=== PATIENT | male | born 1975 | race African-American/Black ===

== ENCOUNTER 2016-03-14 16:52 | Inpatient (IN) | payer OTHER ==
[2016-03-14] VITALS (14 sets, daily range): BP systolic 134–168; BP diastolic 90–101
[~2016-03-14] VITALS: Ht 172.7 cm; Wt 78.5 kg
--- NOTE | ~2016-03-14 | H ---
[facility] [place] [address] HISTORY AND PHYSICAL Name: BENI MERCEDES Room #: 247-P ADM IN M.R.#: [id number] Admission: 03/14/16 Attend Phys: Padilla Harris MD Discharge: Date of : 73 Report #: [id number] THIS REPORT FOR: //name// CC: FAM unknown Padilla Harris ATTENDING PHYSICIAN: Dr. Padilla Harris. PRIMARY CARE PHYSICIAN: Dr. Peterson. CHIEF COMPLAINT: Seizures. 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 He had another stroke in 2011 affecting the same side. He developed seizures after the first stroke. He is on multiple seizure medications. He is followed by Neurology. He has had multiple admissions for breakthrough seizures or for seizures related to medication noncompliance. He lives at home with his family. Apparently, EMS was called because he was having multiple seizures today. He was given 15 mg of Valium by EMS. He was seizing when he came in to the ER, after IV was establish he was given Ativan in the ER, x 2 doses and eventually this seizure activity stopped. His reported that he was taking all his regular seizure medications except he has been out of clonazepam. The patient had a very extended postictal phase and was still mostly unresponsive after seizures in the ER, therefore was opted to admit him for further evaluation. He was protecting his airway and he was given a dose of IV Keppra in the ER. He is now in ICU. He is more arousable but still sleepy. He is able to answer most questions and follow commands. He was able to tell me that he was in the hospital, he was not sure which one. He is able to tell me that it was 2016, but he said it was April. He says he was taking all of his medications. He denies any recent illnesses such as cough, congestion, fevers, chills, nausea or vomiting or diarrhea. PAST MEDICAL HISTORY: Multiple cerebrovascular accidents with residual left-sided weakness, memory loss, and post-stroke epilepsy. PAST SURGICAL HISTORY: Appendectomy. ALLERGIES: LACOSAMIDE CAUSES PSYCHOSIS AND HALLUCINATION AND NASAL VERSED, UNKNOWN REACTION. HOME MEDICATIONS: Phenytoin 300 mg q.h.s. and 200 mg daily, Briviact 50 mg b.i.d., Keppra 1000 mg b.i.d., Prozac 20 mg daily, Ativan 0.5 mg q. 8 hours and p.r.n. SOCIAL HISTORY: The patient who lives at home with his family. He does smoke like six cigarettes per day. Denies any alcohol use. He does admit to smoking [address] [address] HISTORY AND PHYSICAL Name: BENI MERCEDES Room #: 247-P ADM IN [facility]#: [id number] Admission: 03/14/16 Attend Phys: Padilla Harris MD Discharge: Date of : 73 Report #: [id number]. REVIEW OF SYSTEMS: Unobtainable due to confusion. PHYSICAL EXAMINATION: GENERAL: The patient is an arousable but confused male in no acute distress. VITAL SIGNS: Temperatures unknown, heart rate is 97, respirations , blood pressure is 150/99, oxygen 100% on 2 liters. HEENT: PEERLA. The patient was able to track with his eyes, sclerae are nonicteric. Oral mucosa is pink and moist. No tongue lacerations. NECK: Supple, no JVD noted. CARDIOVASCULAR: Normal S1, S2. No murmurs, rubs or gallops. RESPIRATORY: Breath sounds are clear bilaterally. No wheezing or rhonchi. Breathing is nonlabored. ABDOMEN: Soft, nontender, nondistended with positive bowel sounds. VASCULAR: No edema noted. Pedal pulses are 2+. NEUROLOGIC: The patient is somewhat sleepy, but aroused easily and was able to follow commands. He was somewhat confused and only oriented to person, and place. He was unable to tell me the current month. He does have some weakness on the left side with muscle strength 4/5 and the left arm and leg. He is moving the right side without difficulty. There is no facial asymmetry. Speech is clear, but somewhat slow in his responses. SKIN: Intact. No rashes or lesions. LABORATORY DATA AND DIAGNOSTICS: , hemoglobin 16.8, platelets 205. Sodium 148, potassium 4.6, BUN 8, creatinine 1.0. Glucose 139. Urine drug screen is positive for benzodiazepines and THC, CK is 61, alcohol level is less than 10. Troponins negative and CT of the head without contrast showed that it was stable. There is extensive right cerebellar hemispheric encephalomalacia and gliosis. There is no evidence of acute intracranial hemorrhage or acute intracranial abnormality. ASSESSMENT AND PLAN: 1. Intact tract seizures, his seizures eventually stopped in the ER after Valium and Ativan. He did have extended postictal phase. He is now more arousable, he was loaded with Keppra in the ER. We will continue with IV Keppra for now and since he is more alert, he should be able to resume his oral medications this morning including Dilantin and Briviact and Neurology is consulted. We will return EEG for morning. Continue with seizure precautions and CT of the head showed no acute changes. Check Dilantin and Keppra levels. 2. History of extensive cerebrovascular accident in the right MCA with residual left-sided weakness. It does not look like he is on any blood thinners. His left side weakness is at baseline. 3. Tobacco abuse and marijuana use. The patient has been advised to quit. 4. Deep venous thrombosis prophylaxis, place sequential compression devices. [facility] [address] [place] [address] HISTORY AND PHYSICAL Name: NAILARADHABENI NILO Room #: [facility] IN [facility]#: [id number] Admission: 03/14/16 Attend Phys: Padilla Harris MD Discharge: Date of : 73 Report #: [id number] We will continue to follow the patient closely throughout the hospitalization and make changes based on clinical status. <ELECTRONICALLY SIGNED> By: NAVYA Montgomery 03/15/16 0646 0512 06 NAVYA Montgomery /nt
--- NOTE | ~2016-03-14 | EEG ---
[facility] [place] [address] ELECTROENCEPHALOGRAM Name: BENI MECREDES Room #: 420-P [facility] IN M.R.#: [id number] Admission: 03/14/16 Attend Phys: Sanchez Manedl Discharge: 03/15/16 Date of : 73 Report #: [id number] THIS REPORT FOR: //name// CC: FAM unknown Sanchez Hammer The patient is a 40-year-old male who was in status epilepticus the day previously. He has a well known history of drug-resistant epilepsy. DESCRIPTION: The awake record consists of attenuation over the right hemisphere. A posterior dominant rhythm is seen over the left hemisphere and is at 8 cycles per second. Over the frontotemporal head regions, 8-shzrs-iqy-second activity is seen intermittently. Stage I sleep was characterized by attenuation of the background record. Photic stimulation was non-activating. No clear epileptiform discharges were noted. IMPRESSION: This is an abnormal adult awake record. The patient has attenuation over the right hemisphere with no well developed posterior dominant rhythm suggesting right hemispheric dysfunction. However, slowing was also seen over the left frontotemporal head regions and may also indicate focal cerebral dysfunction. No clear epileptiform discharges were noted. <ELECTRONICALLY SIGNED> By: Evette Montes De Oca DO 03/16/16 0833 1541 1802 Evette Montes De Oca DO /nt
[~2016-03-14 16:52] MED LIST: A + D42.5 GM; ASPIR 8181 MG PO; ASPIRIN EC325 M1 PO; ASPIRIN PO; ASPIRIN325 PO; ATIVAN0.5 MG; ATIVAN0.5 MG PO; ATIVAN1 MG PO; CEFTIN500 MG PO; CHLORTHALIDONE25 MG PO; DILANTIN 100 M100 MG PO; DILANTIN100 MG PO; DILANTIN30 MG PO; FLAGYL500 MG PO; FOLIC ACID 40400 MC1 PO; FOLIC ACID1 MG PO; KEPPRA 500 MG500 M1 PO; KEPPRA1000 MG PO; KEPPRA750 MG PO; LEVETIRACETAM PO; PHENYTOIN SODI100 M3 PO; PHENYTOIN SODI300 MG PO; PHENYTOIN50 MG PO; PRAVASTATIN SOD20 MG PO; PROTONIX40 M2 PO; TYLENOL325 MG PO; VIMPAT150 MG PO; ZOLOFT 50 MG TA50 M1 PO
[2016-03-14 17:21] LABS: BASOPHILS 0.5 % (0.0-2.0); HEMATOCRIT 49.3 % (42.0-52.0); HEMOGLOBIN 16.8 gm/dL (14.0-18.0); LYMPHOCYTES 17.1 % (24.0-44.0); MCH 31.7 pg (26.0-34.0); MCV 93.3 fL (80.0-100.0); MONOCYTES 5.4 % (1.0-8.0); PLATELET COUNT 205 thou/uL (150-400); RBC 5.29 mil/uL (4.50-6.00); RDW 14.6 % (10.5-14.5); WBC 13.2 thou/uL (4.0-11.0)
[2016-03-14 17:24] LABS: MANUAL DIFF NO
[2016-03-14] MEDS ORDERED: BRIVIACT50 MG PO (17:24)
[2016-03-14] MEDS ORDERED: PROZAC20 MG PO (17:25)
[2016-03-14 17:33] LABS: ANION GAP 7 mmol/L (7-16); BUN 8 mg/dL (7-18); CHLORIDE 110 mmol/L (98-107); CO2 31 mmol/L (21-32); GLUCOSE 139 mg/dL (70-99); POTASSIUM 4.6 mmol/L (3.5-5.1); SODIUM 148 mmol/L (136-145)
[2016-03-14 17:42] LABS: URINE BILIRUBIN NEGATIVE (Negative); URINE BLOOD 2+ (Negative); URINE COLOR YELLOW; URINE GLUCOSE-RANDOM* NEGATIVE (Negative); URINE KETONES NEGATIVE (Negative); URINE LEUKOCYTES-REFLEX NEGATIVE (Negative); URINE PROTEIN (DIPSTICK) 1+ (Negative); URINE SPECIFIC GRAVITY 1.025 (1.003-1.035); URINE UROBILINOGEN 0.2 E.U./dl (0.2-1.0)
[2016-03-14 17:44] LABS: ALBUMIN 3.6 g/dL (3.4-5.0); ALKALINE PHOSPHATASE 198 U/L (46-116); DILANTIN 12.9 ug/mL (10.0-20.0); SGOT 16 U/L (15-37); TOTAL BILIRUBIN 0.3 mg/dL (<0.1-1.0); TOTAL PROTEIN 7.6 g/dL (6.4-8.2); TROPONIN-I < 0.04 ng/mL (<0.04-0.07)
[2016-03-14 17:53] LABS: AMP/METHAMP Negative (Negative); BARBITURATES Negative (Negative); BENZODIAZEPINES POSITIVE (Negative); COCAINE Negative (Negative); METHADONE Negative (Negative); OPIATES Negative (Negative); PCP Negative (Negative); THC POSITIVE (Negative)
[2016-03-14 17:56] LABS: CASTS None Seen /LPF (None Seen); CRYSTALS None Seen /LPF (None Seen); SQUAMOUS None Seen /LPF (0-3)
[2016-03-14 17:57] LABS: URINE RBC 0-2 Rare /HPF (0-2); URINE WBC-REFLEX None Seen /HPF (0-5)
[2016-03-14 23:19] LABS: SGPT 24 U/L (30-65)
[2016-03-15] VITALS (17 sets, daily range): BP systolic 134–148; BP diastolic 78–99
[2016-03-15] MEDS ORDERED: CLONAZEPAM 1 MG1 M1 PO (10:42)
== END 2016-03-15 17:23 | disposition home or self-care (01) | DRG 101 ==
LOC: ER 16:52 → ICU 19:18 → EROBS 19:18 → ICU 20:10 → 4E 03-15 13:59
PROVIDERS: Emergency Medicine
DX: G40.901 Epilepsy, unspecified, not intractable, with status epilepticus (principal); I69.354 Hemiplegia and hemiparesis following cerebral infarction affecting left non-dominant side; F32.9 Major depressive disorder, single episode, unspecified; I99.9 Unspecified disorder of circulatory system; G93.89 Other specified disorders of brain; R41.3 Other amnesia; F12.90 Cannabis use, unspecified, uncomplicated; F41.9 Anxiety disorder, unspecified; F17.210 Nicotine dependence, cigarettes, uncomplicated; Z88.8 Allergy status to other drugs, medicaments and biological substances; Z90.49 Acquired absence of other specified parts of digestive tract; Z88.4 Allergy status to anesthetic agent; Z71.51 Drug abuse counseling and surveillance of drug abuser; Z71.6 Tobacco abuse counseling
CPT/HCPCS: 10078

== ENCOUNTER 2016-07-16 16:16 | Emergency (ER) | payer OTHER ==
[~2016-07-16] VITALS: Ht 160 cm; Wt 79.4 kg
--- NOTE | ~2016-07-16 | EKG ---
[address] [place] [address] ELECTROCARDIOGRAM REPORT Name: BENI MERCEDES Room #: [facility].R.#: [id number] Admission: Attend Phys: Discharge: Date of : 73 Report #: [id number] THIS REPORT FOR: //name// [facility] ED Test Date: 2016-07-16 Test Time: 16:29:38 Pat Name: BENI MERCEDES Department: Room: Gender: Dean Of Student Services: ROMARIO : 1975 Requested By: Jim Michael Order Number: [id number] MD: Measurements Intervals [place] Rate: 79 P: 29 IL: 137 QRS: 36 QRSD: 85 T: 30 QT: 365 QTc: 419 Interpretive Statements Sinus rhythm ST elev, probable normal early repol pattern Compared to ECG 11/12/2015 19:39:10 ST (T wave) deviation now present T-wave abnormality no longer present [email or web address] By: 1629 1629 Epiphany Epiphany, /EPI
[~2016-07-16 16:16] MED LIST changes: +BRIVIACT50 MG PO; +CLONAZEPAM 1 MG1 M1 PO; +PROZAC20 MG PO
[2016-07-16 16:57] LABS: ABSOLUTE NEUTROPHILS 4.9 thou/uL (1.4-8.2); BASOPHILS 0.7 % (0.0-2.0); EOSINOPHILS 1.8 % (0.0-3.0); HEMATOCRIT 47.8 % (42.0-52.0); HEMOGLOBIN 16.5 gm/dL (14.0-18.0); LYMPHOCYTES 26.9 % (24.0-44.0); MCH 31.8 pg (26.0-34.0); MCHC 34.4 g/dL (28.0-37.0); MCV 92.4 fL (80.0-100.0); MONOCYTES 7.9 % (1.0-8.0); PLATELET COUNT 182 thou/uL (150-400); POLYS 62.7 % (36.0-66.0); RBC 5.18 mil/uL (4.50-6.00); WBC 7.9 thou/uL (4.0-11.0)
[2016-07-16 17:02] LABS: MANUAL DIFF NO
[2016-07-16 17:04] LABS: CALCIUM 8.3 mg/dL (8.5-10.1); CREATININE 0.8 mg/dL (0.7-1.3); POTASSIUM 4.4 mmol/L (3.5-5.1)
[2016-07-16 18:02] LABS: URINE BILIRUBIN NEGATIVE (Negative); URINE BLOOD TRACE (Negative); URINE COLOR YELLOW; URINE GLUCOSE-RANDOM* NEGATIVE (Negative); URINE KETONES NEGATIVE (Negative); URINE LEUKOCYTES-REFLEX NEGATIVE (Negative); URINE PROTEIN (DIPSTICK) NEGATIVE (Negative); URINE SPECIFIC GRAVITY 1.015 (1.003-1.035); URINE UROBILINOGEN 0.2 E.U./dl (0.2-1.0)
== END 2016-07-16 20:36 | disposition home or self-care (01) ==
LOC: ER 16:16
PROVIDERS: Emergency Medicine
DX: G40.909 Epilepsy, unspecified, not intractable, without status epilepticus (principal); F17.210 Nicotine dependence, cigarettes, uncomplicated; Z86.73 Personal history of transient ischemic attack (TIA), and cerebral infarction without residual deficits; Z90.89 Acquired absence of other organs; Z88.8 Allergy status to other drugs, medicaments and biological substances

== ENCOUNTER 2016-08-06 15:08 | Emergency (ER) | payer OTHER ==
[~2016-08-06] VITALS: Ht 160 cm; Wt 79.4 kg
[2016-08-06 16:46] LABS: CALCIUM 8.8 mg/dL (8.5-10.1); CREATININE 0.7 mg/dL (0.7-1.3)
[2016-08-06 16:48] LABS: DILANTIN 12.7 ug/mL (10.0-20.0)
[2016-08-06 17:05] LABS: MCH 32.2 pg (26.0-34.0); MCHC 34.5 g/dL (28.0-37.0); MCV 93.4 fL (80.0-100.0); RBC 5.57 mil/uL (4.50-6.00)
[2016-08-06 17:08] LABS: MANUAL DIFF YES
[2016-08-06 17:51] LABS: ABSOLUTE NEUTROPHILS 10.6 thou/uL (1.4-8.2); PLATELET COUNT 159 thou/uL (150-400); TOTAL CELL COUNT 100
== END 2016-08-06 19:00 | disposition home or self-care (01) ==
LOC: ER 15:08
PROVIDERS: Nurse Practitioner
DX: G40.909 Epilepsy, unspecified, not intractable, without status epilepticus (principal); F17.210 Nicotine dependence, cigarettes, uncomplicated; F15.10 Other stimulant abuse, uncomplicated; Z90.49 Acquired absence of other specified parts of digestive tract; Z88.8 Allergy status to other drugs, medicaments and biological substances

== ENCOUNTER 2016-11-10 20:55 | Inpatient (IN) | payer OTHER ==
[~2016-11-10] VITALS: Ht 170.2 cm; Wt 76.7 kg
--- NOTE | ~2016-11-10 | HC ---
[facility] [place] [address] CONSULTATION Name: BENI MERCEDES Room #: 313-P [facility] IN M.R.#: [id number] Admission: 11/10/16 Attend Phys: Sanchez Hammer Discharge: 11/13/16 Date of : 73 Report #: [id number] THIS REPORT FOR: //name// CC: JAYDEN physician/PCP Sanchez Hammer MD Obdulio Garcia Evette Pollard DATE OF SERVICE: 11/11/2016 PULMONARY CRITICAL CARE CONSULTATION REFERRING PROVIDER: Sanchez Hammer MD REASON FOR CONSULTATION: Respiratory failure. CHIEF COMPLAINT: Seizures. HISTORY OF PRESENT ILLNESS: Our group was asked to see this patient in consultation while hospitalized at [facility], currently on mechanical ventilatory support in ICU and unable to give any history, somewhat sedated 41-year-old male with prior history of seizure disorder associated with prior cerebrovascular accident. Apparently, had a grand mal seizure at home and en route, received diazepam en route as well as in the Emergency Department, had noted 2 seizures, was given Keppra and lorazepam. The patient had some hypoxemia and unable to maintain adequate airway protection, subsequently intubated, currently on mechanical ventilatory support. Otherwise, the patient may have had some noncompliance with one of his medications, which is unclear. Currently, he is sedated and on mechanical ventilator. ALLERGIES: INCLUDE MIDAZOLAM AND VIMPAT. PAST MEDICAL HISTORY: 1. History of prior cerebrovascular accident without any significant mobilization issues according to the family. 2. Seizure disorder secondary to above. 3. Some difficulty with memory. OUTPATIENT MEDICATIONS: Include phenytoin, Briviact, Prozac and Klonopin. SOCIAL HISTORY: Unobtainable due to current status. FAMILY HISTORY: Unobtainable due to current status. REVIEW OF SYSTEMS: Unobtainable due to current status. [facility] [address] [place] [address] CONSULTATION Name: BENI MERCEDES NILO Room #: 313-P DIS IN [facility].#: [id number] Admission: 11/10/16 Attend Phys: Sanchez Hammer Discharge: 11/13/16 Date of : 73 Report #: [id number] PHYSICAL EXAMINATION: VITAL SIGNS: Temperature 38.2, pulse 90s, respiratory rate 14, blood pressure 122/93. GENERAL: This is a middle-aged male, sedated on the ventilator. EARS, NOSE AND THROAT: Reveals a 7.[address] No oropharyngeal erythema noted. NECK: Supple, no lymphadenopathy. LUNGS: Clear. No wheezes or crackles. Minimal secretions aspirated from airway. CARDIOVASCULAR: Heart regular. No murmurs appreciated. ABDOMEN: Soft, nontender, no masses, no hepatosplenomegaly. EXTREMITIES: Warm without edema. NEUROLOGIC: The patient was sedated on mechanical ventilator. LABORATORY DATA: White blood cell count 18,000; hemoglobin 16; hematocrit 45; platelet count 148. Sodium 142, potassium 3.8, chloride 106, bicarbonate 26, BUN 7, creatinine 1.0, glucose 92. Initial arterial blood gas revealed a pH of 7.18 and an elevated lactate. This morning, arterial blood gas showed a pH of 7.52, PCO2 of 31, pO2 of 225, bicarbonate 25 with lactate 2.3. Dilantin level was 1.2. Marijuana screen positive. Chest x-ray revealed clear lung field. IMPRESSION: 1. Seizure disorder with subtherapeutic phenytoin level likely related to this, although it could be related to underlying source of potential fever. 2. Fever with leukocytosis may be related to seizure disorder and status epilepticus yesterday, on no antibiotics at present, would continue to observe other signs of infection, await cultures and check urinalysis. 3. Respiratory failure due to the above, minimize sedation and see if the patient can follow up commands and work to wean from mechanical ventilatory support. 4. Additional recommendations to follow. Thank you for requesting our suggestions. Discussed with nursing and respiratory therapy. Total critical care time 35 minutes to this point not including any procedures. <ELECTRONICALLY SIGNED> By: Roe Tilley MD 11/21/16 1304 1125 1957 Roe Tilley MD /nt
[2016-11-10 22:11] LABS: ABSOLUTE NEUTROPHILS 12.4 thou/uL (1.4-8.2); BASOPHILS 0.2 % (0.0-2.0); EOSINOPHILS 0.4 % (0.0-3.0); HEMATOCRIT 47.2 % (42.0-52.0); MCH 33.1 pg (26.0-34.0); MCV 97.2 fL (80.0-100.0); MONOCYTES 9.2 % (1.0-8.0); PLATELET COUNT 140 thou/uL (150-400); POLYS 77.2 % (36.0-66.0); RBC 4.85 mil/uL (4.50-6.00); RDW 14.5 % (10.5-14.5)
[2016-11-10 22:20] LABS: CALCIUM 8.5 mg/dL (8.5-10.1); CREATININE 1.3 mg/dL (0.7-1.3); POTASSIUM 3.8 mmol/L (3.5-5.1)
[2016-11-10 22:25] LABS: ALBUMIN 3.7 g/dL (3.4-5.0); DILANTIN 1.2 ug/mL (10.0-20.0); MAGNESIUM 1.8 mg/dL (1.8-2.4); TOTAL BILIRUBIN 0.2 mg/dL (<0.1-1.0); TOTAL PROTEIN 7.3 g/dL (6.4-8.2)
[2016-11-10 22:37] LABS: ABG SAMPLE TYPE ARTERIAL; BE(vivo) -11.8 mmol/L (-2 to +3); HCO3 16.4 mmol/L (22.0-26.0); LACTATE 7.05 mmol/L (0.5-2.0); O2(CT) 23.6 mL/dL (15.0-23.0); O2Hb 97.6 % (92.0-98.0); PCO2 45.5 mmHg (35.0-45.0); PO2 260.5 mmHg (80.0-100.0); pH 7.176 (7.360-7.450); sO2 99.4 % (92.0-98.0); tCO2 17.8 mmol/L (24.0-30.0)
[2016-11-10 22:38] LABS: ABG COMMENT A/C MODE/POST; STICK SITE R.RADIAL; TIDAL VOLUME 600 ml
[2016-11-10 22:41] LABS: MANUAL DIFF NO
[2016-11-11] VITALS (38 sets, daily range): BP systolic 122–158; BP diastolic 86–112
[2016-11-11 02:09] LABS: ABG COMMENT AC MODE; ABG SAMPLE TYPE ARTERIAL; BE(vivo) 2.8 mmol/L (-2 to +3); HCO3 24.7 mmol/L (22.0-26.0); LACTATE 2.31 mmol/L (0.5-2.0); O2(CT) 23.4 mL/dL (15.0-23.0); O2Hb 98.4 % (92.0-98.0); PCO2 31.1 mmHg (35.0-45.0); PO2 224.9 mmHg (80.0-100.0); STICK SITE R.RADIAL; TIDAL VOLUME 550 ml; pH 7.518 (7.360-7.450); sO2 99.6 % (92.0-98.0); tCO2 25.7 mmol/L (24.0-30.0)
[2016-11-11 04:02] LABS: AMP/METHAMP Negative (Negative); BARBITURATES Negative (Negative); BENZODIAZEPINES Negative (Negative); COCAINE Negative (Negative); METHADONE Negative (Negative); OPIATES Negative (Negative); PCP Negative (Negative); THC POSITIVE (Negative)
[2016-11-11 04:08] LABS: ALBUMIN 3.6 g/dL (3.4-5.0); CALCIUM 8.7 mg/dL (8.5-10.1); POTASSIUM 3.8 mmol/L (3.5-5.1); TOTAL BILIRUBIN 0.4 mg/dL (<0.1-1.0); TOTAL PROTEIN 7.2 g/dL (6.4-8.2)
[2016-11-11 04:18] LABS: ABSOLUTE NEUTROPHILS 14.3 thou/uL (1.4-8.2); BASOPHILS 0.2 % (0.0-2.0); EOSINOPHILS 0.1 % (0.0-3.0); HEMATOCRIT 45.3 % (42.0-52.0); HEMOGLOBIN 15.9 gm/dL (14.0-18.0); LYMPHOCYTES 12.6 % (24.0-44.0); MCH 32.4 pg (26.0-34.0); MCV 92.5 fL (80.0-100.0); MONOCYTES 6.5 % (1.0-8.0); PLATELET COUNT 148 thou/uL (150-400); POLYS 80.6 % (36.0-66.0); RDW 14.6 % (10.5-14.5); WBC 17.7 thou/uL (4.0-11.0)
[2016-11-11 04:29] LABS: MANUAL DIFF NO
[2016-11-11 12:14] LABS: URINE BILIRUBIN NEGATIVE (Negative); URINE BLOOD TRACE (Negative); URINE COLOR YELLOW; URINE GLUCOSE-RANDOM* NEGATIVE (Negative); URINE KETONES NEGATIVE (Negative); URINE PROTEIN (DIPSTICK) NEGATIVE (Negative); URINE UROBILINOGEN 0.2 E.U./dl (0.2-1.0)
[2016-11-11 12:15] LABS: URINE LEUKOCYTES-REFLEX 1+ (Negative)
[2016-11-11 12:26] LABS: CASTS None Seen /LPF (None Seen); CRYSTALS None Seen /LPF (None Seen); SQUAMOUS 0-3 Few /LPF (0-3); URINE RBC 0-2 Rare /HPF (0-2); URINE WBC-REFLEX 6-15 Few /HPF (0-5); WBC CLUMPS Rare (None Seen)
[2016-11-11 13:38] LABS: ABG SAMPLE TYPE ARTERIAL; BE(vivo) 0.6 mmol/L (-2 to +3); HCO3 24.9 mmol/L (22.0-26.0); LACTATE 1.43 mmol/L (0.5-2.0); O2Hb 97.1 % (92.0-98.0); PCO2 39.1 mmHg (35.0-45.0); PO2 117.2 mmHg (80.0-100.0); pH 7.422 (7.360-7.450); sO2 98.3 % (92.0-98.0); tCO2 26.1 mmol/L (24.0-30.0)
[2016-11-11 13:40] LABS: Pressure Support 8 cm H20; STICK SITE R.RADIAL; TIDAL VOLUME 525 ml
[2016-11-12] VITALS (12 sets, daily range): BP systolic 110–143; BP diastolic 72–94
[2016-11-12 04:25] LABS: HEMATOCRIT 46.4 % (42.0-52.0); HEMOGLOBIN 15.9 gm/dL (14.0-18.0); MCH 32.3 pg (26.0-34.0); MCHC 34.3 g/dL (28.0-37.0); MCV 94.2 fL (80.0-100.0); RBC 4.93 mil/uL (4.50-6.00); RDW 14.6 % (10.5-14.5); WBC 13.6 thou/uL (4.0-11.0)
[2016-11-12 04:31] LABS: MANUAL DIFF YES
[2016-11-12 05:36] LABS: ABSOLUTE NEUTROPHILS 9.2 thou/uL (1.4-8.2); ANISOCYTOSIS SLIGHT; LARGE PLATELETS RARE; MACROCYTES SLIGHT; PLATELET COUNT 108 thou/uL (150-400); TOTAL CELL COUNT 100
[2016-11-13 04:00] VITALS: BP 136/94
[2016-11-13 08:00] VITALS: BP 127/90
[2016-11-13] MEDS ORDERED: AMLODIPINE BESYL5 M1 PO (09:09)
[2016-11-13] MEDS ORDERED: DILANTIN100 MG PO (09:20)
[2016-11-13] MEDS ORDERED: PHENYTOIN50 MG PO (09:20)
[2016-11-13 12:06] VITALS: BP 127/90
[2016-11-13 13:00] VITALS: BP 127/90
== END 2016-11-13 14:15 | disposition home or self-care (01) | DRG 100 ==
LOC: ER 20:55 → 3N 22:04 → EROBS 22:04 → ICU 11-11 00:26 → 3N 11-12 15:40 → ENTRNSPT 11-13 14:07 → EDTRNSPTSTS 11-13 14:10 → 3N 11-13 14:15
PROVIDERS: Emergency Medicine; Family Medicine; Hospitalist; Internal Medicine Pulmonary Disease; Nurse Practitioner Family
DX: G40.901 Epilepsy, unspecified, not intractable, with status epilepticus (principal); J96.00 Acute respiratory failure, unspecified whether with hypoxia or hypercapnia; E87.2 Acidosis; I69.951 Hemiplegia and hemiparesis following unspecified cerebrovascular disease affecting right dominant side; F17.210 Nicotine dependence, cigarettes, uncomplicated; D72.829 Elevated white blood cell count, unspecified; F12.90 Cannabis use, unspecified, uncomplicated; I10 Essential (primary) hypertension; F32.9 Major depressive disorder, single episode, unspecified; Z90.49 Acquired absence of other specified parts of digestive tract; Z88.8 Allergy status to other drugs, medicaments and biological substances
CPT/HCPCS: 10078; 10096

== ENCOUNTER 2017-04-25 05:58 | Inpatient (IN) | payer OTHER ==
[2017-04-25] VITALS (20 sets, daily range): BP systolic 105–150; BP diastolic 79–107
[~2017-04-25] VITALS: Ht 175.3 cm; Wt 76.3 kg
--- NOTE | ~2017-04-25 | EEG ---
[facility] [place] [address] ELECTROENCEPHALOGRAM Name: BENI MERCEDES Room #: 213-P [facility] IN M.R.#: [id number] Admission: 04/25/17 Attend Phys: Chuck Dang MD Discharge: 04/30/17 Date of : 73 Report #: [id number] THIS REPORT FOR: //name// CC: Chuck Dang [facility] physician/PCP DATE OF SERVICE: 04/27/2017 This patient is having unusual symptom. EEG is being done to evaluate for any reoccurrence of seizure. On the left side, the patient's background activity is about 8-9 Hz and 30 microvolts. On the right side is suppressed. The patient does become drowsy that is associated with bilateral slowing and vertex sharp waves. Photic stimulation is unremarkable. Throughout the record, no active epileptiform activity was noticed. IMPRESSION: This patient's EEG does not demonstrate any reoccurrence of seizures. Thank you very much for this referral. <ELECTRONICALLY SIGNED> By: Rowdy Markham MD 05/01/17 1146 1757 1800 Rowdy Markham MD /nt
--- NOTE | ~2017-04-25 | EEG ---
[facility] [place] [address] ELECTROENCEPHALOGRAM Name: BENI MERCEDES Room #: 213-P [facility] IN M.R.#: [id number] Admission: 04/25/17 Attend Phys: Chuck Dang MD Discharge: 04/30/17 Date of : 73 Report #: [id number] THIS REPORT FOR: //name// CC: Chuck Dang [facility] physician/PCP DATE OF SERVICE: 04/25/2017 This patient is being evaluated for the possibility of seizure. EEG was done by placing the electrodes by standard 10/20 system of electrode placement. Both referential and sequential montages were used for recording. Background activity in this patient's EEG is about 10-11 Hz and 30 microvolts on the left side, on the right side, it appeared to be suppressed, which may be because of his stroke. Photic stimulation is unremarkable. Throughout the record, no active epileptiform activity was noticed. IMPRESSION: In spite of the patient's history of seizures, this patient's EEG does not demonstrate any clear-cut epileptiform activity. Thank you very much for this referral. <ELECTRONICALLY SIGNED> By: Rowdy Markham MD 05/01/17 1146 1513 1705 Rowdy Markham MD /nt
--- NOTE | ~2017-04-25 | HC ---
[facility] [place] [address] CONSULTATION Name: BENI MERCEDES Room #: 243-P ADM IN M.R.#: [id number] Admission: 04/25/17 Attend Phys: Chuck Dang MD Discharge: Date of : 73 Report #: [id number] THIS REPORT FOR: //name// CC: Chuck Dang [facility] physician/PCP DATE OF SERVICE: 04/25/2017 REASON FOR CONSULTATION: Acute respiratory failure. IMPRESSION: 1. Acute hypoxemic respiratory failure. 2. Status epilepticus. 3. Possible aspiration. 4. Hyperglycemia. 5. Leukocytosis. 6. Metabolic acidosis. PLAN: Continue current ventilator, IV fluids, meds per Dr. Markham. HISTORY OF PRESENT ILLNESS: A 41-year-old with history of seizure disorder with decreased mental status at home. called 911, required intubation, Ativan. Currently, on Diprivan when I saw him and he was having an EEG done. ALLERGIES: MIDAZOLAM, ____ AND VIMPAT. MEDICATIONS: Per chart included brivaracetam, fluoxetine, clonazepam, citalopram. PAST SURGICAL HISTORY: Appendectomy, VNS placement. FAMILY HISTORY: Noncontributory. SOCIAL HISTORY: Positive history of tobacco and THC per chart. REVIEW OF SYSTEMS: Unable, history of right middle cerebral artery CVA in 2006 with left-sided weakness, memory loss. PHYSICAL EXAMINATION: VITAL SIGNS: Temp 99.6, pulse 87, respirations 18, BP 127/97. The patient was on ventilator. LUNGS: Clear anteriorly. HEART: Regular. ABDOMEN: Bowel sounds present. LOWER EXTREMITIES: No edema. [facility] [address] [place] [address] CONSULTATION Name: BENI MERCEDES Room #: 243-P [facility] IN [facility]#: [id number] Admission: 04/25/17 Attend Phys: Chuck Dang MD Discharge: Date of : 73 Report #: [id number] LABORATORY DATA: A pH 7.314, pCO2 of 41, pO2 of 329 on 60%, rate of 14, tidal volume 550, PEEP of 5. Chest x-ray showed no acute. White count 14, hemoglobin 15.6, platelets 193. CT head showed stable by report. <ELECTRONICALLY SIGNED> By: Baylee South MD 04/28/172011 02 Baylee South MD /nt
--- NOTE | ~2017-04-25 | HC ---
[facility] [place] [address] CONSULTATION Name: NAILARADHABENI NILO Room #: 213-P [facility] IN M.R.#: [id number] Admission: 04/25/17 Attend Phys: Chuck Dang MD Discharge: 04/30/17 Date of : 73 Report #: [id number] THIS REPORT FOR: //name// CC: Chuck Dang [facility] physician/PCP DATE OF SERVICE: 04/25/2017 HISTORY OF PRESENT ILLNESS: This is a 41-year-old male patient who is well known to me from the prior admissions. This patient has intractable seizure disorder and this patient has been admitted multiple times to this facility. The patient was seen by me this morning in the Emergency Room and I talked to the Emergency Room physician, Dr. Torres. This patient was admitted with recurrent seizures. They gave Ativan to him and finally intubated him and put him on propofol. I have called the patient's at least 4 times and I have not been able to reach. I have told the nurses that they should contact me whenever the comes here and they told me the is supposed to be here today. I need to clarify the medication. He is supposed to be on Dilantin, but there is no Dilantin in his system. It is not clear if he is on valproic acid or Depakote. REVIEW OF SYSTEMS: Indicate he has a stroke in the past that affected the left side of the body. He has been evaluated at multiple locations for that. He is noncompliant. He has been told multiple times to stay compliant and the consequences of noncompliance, but the compliance continue to be very poor with catastrophic results. I reviewed the last records and it looks like this patient was on Dilantin a total of 500 mg when he was dismissed. He was also on Briviact and he was on 100 mg p.o. b.i.d. This was his relevant 14-point review of systems. PAST MEDICAL HISTORY: Has been positive for numerous medical problems. The most important neurological one is stroke in the past as well as intractable seizure as well as noncompliance. FAMILY HISTORY: Negative for early age seizures. SOCIAL HISTORY: The patient lives with his . I have not been able to reach the patient's to get more history. Apparently, he does have a history of smoking. PHYSICAL EXAMINATION: This morning was limited because he was sedated, but this evening the exam is somewhat better and he is waking up. I suspect a lot of it was because of the sedation. He moves both sides. Cranial nerve examination is not possible because of the patient's mental status. He is still intubated. He is still on vent. He is a well-developed individual who does not have any dysmorphic features of eyes, ears and face. His vital signs are mostly [facility] [address] [place] [address] CONSULTATION Name: NAILAJOSHBENI SOFIA NILO Room #: 213-P [facility] IN [facility].#: [id number] Admission: 04/25/17 Attend Phys: Chuck Dang MD Discharge: 04/30/17 Date of : 73 Report #: [id number] maintained. His last blood pressure was 150/106, respiration is 18, pulse is 93, and temperature is 99.5. LABORATORY DATA: He did have a CT scan of the head done, which I reviewed and it does not appear to be showing any acute changes, but he has chronic changes. He does have a slightly increased white count consistent with a seizure. It does not look like there is any CBS infection. IMPRESSION AND PLAN: Breakthrough seizure because of noncompliance. The patient's Dilantin level is only 2.8. knows for sure he did not take his medication last night according to the ER physician, but when was the last time he took his medication is not even clear. I will put him back on similar dose of Dilantin and check his Dilantin level in the morning. As soon as comes, we may have to put him back on other medication. We cannot put him on some of the medication because they are not available in the IV form and may have to use some medication with IV form till the oral route can be established. Thank you very much for this referral. More than 50 minutes of time was spent taking care of this patient today and majority of that time was spent coordinating this patient by talking to other health palliative care coordinator. <ELECTRONICALLY SIGNED> By: Rowdy Markham MD 05/01/17 1145 191 2245 Rowdy Markham MD /nt
[~2017-04-25 05:58] MED LIST changes: +AMLODIPINE BESYL5 M1 PO; +CELEXA10 MG PO
[2017-04-25 07:31] LABS: BE(vivo) -5.6 mmol/L (-2 to +3); HCO3 20.2 mmol/L (22.0-26.0); PCO2 40.6 mmHg (35.0-45.0); PO2 328.6 mmHg (80.0-100.0); sO2 99.7 % (92.0-98.0)
[2017-04-25 07:32] LABS: ABSOLUTE NEUTROPHILS 12.5 thou/uL (1.4-8.2); BASOPHILS 0.4 % (0.0-2.0); EOSINOPHILS 0.3 % (0.0-3.0); HEMATOCRIT 44.8 % (42.0-52.0); HEMOGLOBIN 15.6 gm/dL (14.0-18.0); LYMPHOCYTES 6.8 % (24.0-44.0); MCH 32.3 pg (26.0-34.0); MCHC 34.9 g/dL (28.0-37.0); MCV 92.6 fL (80.0-100.0); MONOCYTES 3.6 % (1.0-8.0); PLATELET COUNT 193 thou/uL (150-400); POLYS 88.9 % (36.0-66.0); RBC 4.83 mil/uL (4.50-6.00); RDW 14.1 % (10.5-14.5); pH 7.314 (7.360-7.450)
[2017-04-25 07:45] LABS: CALCIUM 8.2 mg/dL (8.5-10.1); CREATININE 1.2 mg/dL (0.7-1.3); POTASSIUM 4.1 mmol/L (3.5-5.1)
[2017-04-25 21:22] LABS: BE(vivo) 0.4 mmol/L (-2 to +3); HCO3 21.4 mmol/L (22.0-26.0); PCO2 26.4 mmHg (35.0-45.0); PO2 133.2 mmHg (80.0-100.0); pH 7.526 (7.360-7.450)
[2017-04-26] VITALS (26 sets, daily range): BP systolic 114–151; BP diastolic 79–111
[2017-04-26 05:26] LABS: BE(vivo) -1.9 mmol/L (-2 to +3); HCO3 20.3 mmol/L (22.0-26.0); PCO2 28.6 mmHg (35.0-45.0); pH 7.468 (7.360-7.450); sO2 98.8 % (92.0-98.0)
[2017-04-26 05:31] LABS: HEMOGLOBIN 15.5 gm/dL (14.0-18.0); MCV 91.7 fL (80.0-100.0); RBC 4.69 mil/uL (4.50-6.00); RDW 14.4 % (10.5-14.5)
[2017-04-26 05:47] LABS: ALBUMIN 3.2 g/dL (3.4-5.0); CREATININE 0.8 mg/dL (0.7-1.3); MAGNESIUM 1.8 mg/dL (1.8-2.4); POTASSIUM 3.5 mmol/L (3.5-5.1); TOTAL BILIRUBIN 0.4 mg/dL (<0.1-1.0); TOTAL PROTEIN 6.5 g/dL (6.4-8.2)
[2017-04-26 11:33] LABS: BE(vivo) -4.5 mmol/L (-2 to +3); HCO3 20.3 mmol/L (22.0-26.0); PCO2 36.7 mmHg (35.0-45.0); PO2 118.8 mmHg (80.0-100.0); sO2 98.2 % (92.0-98.0)
[2017-04-27] VITALS (15 sets, daily range): BP systolic 118–158; BP diastolic 78–107
[2017-04-27 05:15] LABS: ABSOLUTE NEUTROPHILS 6.8 thou/uL (1.4-8.2); BASOPHILS 0.5 % (0.0-2.0); EOSINOPHILS 1.9 % (0.0-3.0); HEMATOCRIT 42.8 % (42.0-52.0); LYMPHOCYTES 19.9 % (24.0-44.0); MCH 32.3 pg (26.0-34.0); MCV 92.5 fL (80.0-100.0); MONOCYTES 9.9 % (1.0-8.0); PLATELET COUNT 155 thou/uL (150-400); POLYS 67.8 % (36.0-66.0); RBC 4.62 mil/uL (4.50-6.00); RDW 13.9 % (10.5-14.5)
[2017-04-27 05:26] LABS: CALCIUM 8.1 mg/dL (8.5-10.1); CREATININE 0.7 mg/dL (0.7-1.3); POTASSIUM 3.6 mmol/L (3.5-5.1)
[2017-04-28] VITALS (23 sets, daily range): BP systolic 131–174; BP diastolic 87–116
[2017-04-28 19:51] LABS: MAGNESIUM 1.8 mg/dL (1.8-2.4)
[2017-04-28 20:19] LABS: POTASSIUM 2.9 mmol/L (3.5-5.1)
[2017-04-29] VITALS (9 sets, daily range): BP systolic 102–137; BP diastolic 67–99
[2017-04-29 04:13] LABS: HEMATOCRIT 42.7 % (42.0-52.0); MCH 32.4 pg (26.0-34.0); MCHC 35.1 g/dL (28.0-37.0); MCV 92.1 fL (80.0-100.0); RBC 4.64 mil/uL (4.50-6.00); RDW 14.2 % (10.5-14.5); WBC 11.9 thou/uL (4.0-11.0)
[2017-04-29 04:19] LABS: CREATININE 0.7 mg/dL (0.7-1.3); POTASSIUM 3.3 mmol/L (3.5-5.1)
[2017-04-30 00:14] VITALS: BP 109/66
[2017-04-30 02:14] LABS: CREATININE 0.7 mg/dL (0.7-1.3); POTASSIUM 3.6 mmol/L (3.5-5.1)
[2017-04-30 04:00] VITALS: BP 114/77
[2017-04-30 07:53] VITALS: BP 136/91
[2017-04-30 11:29] VITALS: BP 122/64
[2017-04-30] MEDS ORDERED: PHENYTOIN50 MG PO ×2 (13:15→13:51)
[2017-04-30] MEDS ORDERED: VENTOLIN HFA 1818 GM INH (13:15)
[2017-04-30] MEDS ORDERED: AMLODIPINE BESYL5 M1 PO (13:15)
[2017-04-30] MEDS ORDERED: DILANTIN100 MG PO (13:51)
[2017-04-30 15:29] VITALS: BP 122/64
[2017-04-30 16:02] VITALS: BP 138/89
[2017-07-10] MEDS ORDERED: CARBAMAZEPINE200 M2 PO (14:31)
== END 2017-04-30 17:28 | disposition home or self-care (01) | DRG 208 ==
LOC: ER 05:58 → EROBS 07:56 → ICU 07:56 → 2N 04-29 10:02 → ENTRNSPT 04-30 16:47 → 2N 04-30 17:28
PROVIDERS: Emergency Medicine; Hospitalist; Internal Medicine; Internal Medicine Pulmonary Disease; Nurse Practitioner Family
DX: J96.01 Acute respiratory failure with hypoxia (principal); G93.40 Encephalopathy, unspecified; I69.354 Hemiplegia and hemiparesis following cerebral infarction affecting left non-dominant side; E87.2 Acidosis; G40.901 Epilepsy, unspecified, not intractable, with status epilepticus; R41.0 Disorientation, unspecified; F17.210 Nicotine dependence, cigarettes, uncomplicated; Z91.14 Patient's other noncompliance with medication regimen; Z90.49 Acquired absence of other specified parts of digestive tract; Z79.899 Other long term (current) drug therapy; Z88.8 Allergy status to other drugs, medicaments and biological substances
CPT/HCPCS: 10078; 10081; 27000

== ENCOUNTER 2017-07-19 17:55 | Emergency (ER) | payer OTHER ==
[~2017-07-19] VITALS: Ht 182.9 cm; Wt 79.4 kg
[~2017-07-19 17:55] MED LIST changes: +CARBAMAZEPINE200 M2 PO; +VENTOLIN HFA 1818 GM INH
[2017-07-19 18:15] LABS: ABSOLUTE NEUTROPHILS 6.5 thou/uL (1.4-8.2); BASOPHILS 0.6 % (0.0-2.0); EOSINOPHILS 0.9 % (0.0-3.0); HEMATOCRIT 44.8 % (42.0-52.0); HEMOGLOBIN 15.6 gm/dL (14.0-18.0); LYMPHOCYTES 18.7 % (24.0-44.0); MCH 32.2 pg (26.0-34.0); MCHC 34.9 g/dL (28.0-37.0); MCV 92.3 fL (80.0-100.0); MONOCYTES 9.8 % (1.0-8.0); PLATELET COUNT 262 thou/uL (150-400); RBC 4.85 mil/uL (4.50-6.00); RDW 14.3 % (10.5-14.5); WBC 9.3 thou/uL (4.0-11.0)
[2017-07-19 18:23] LABS: CALCIUM 8.7 mg/dL (8.5-10.1); CREATININE 1.1 mg/dL (0.7-1.3); POTASSIUM 4.3 mmol/L (3.5-5.1)
[2017-07-19 20:56] LABS: URINE BILIRUBIN NEGATIVE (Negative); URINE BLOOD NEGATIVE (Negative); URINE CLARITY CLEAR; URINE COLOR YELLOW; URINE GLUCOSE-RANDOM* NEGATIVE (Negative); URINE KETONES NEGATIVE (Negative); URINE LEUKOCYTES-REFLEX NEGATIVE (Negative); URINE NITRITE-REFLEX NEGATIVE (Negative); URINE PROTEIN (DIPSTICK) NEGATIVE (Negative); URINE SPECIFIC GRAVITY 1.015 (1.005-1.035); URINE UROBILINOGEN 0.2 E.U./dl (0.2-1.0)
[2017-07-19 21:04] LABS: AMP/METHAMP Negative (Negative); BARBITURATES Negative (Negative); BENZODIAZEPINES Negative (Negative); COCAINE Negative (Negative); METHADONE Negative (Negative); OPIATES Negative (Negative); PCP Negative (Negative)
== END 2017-07-19 22:12 | disposition home or self-care (01) ==
LOC: ER 17:55
PROVIDERS: Emergency Medicine
DX: G40.909 Epilepsy, unspecified, not intractable, without status epilepticus (principal); F17.210 Nicotine dependence, cigarettes, uncomplicated; Z90.49 Acquired absence of other specified parts of digestive tract; Z88.8 Allergy status to other drugs, medicaments and biological substances

== ENCOUNTER 2017-09-08 10:29 | Inpatient (IN) | payer OTHER ==
[2017-09-08] VITALS (43 sets, daily range): BP systolic 108–158; BP diastolic 83–108
[~2017-09-08] VITALS: Ht 162.6 cm; Wt 75.7 kg
--- NOTE | ~2017-09-08 | EEG ---
[facility] [place] [address] ELECTROENCEPHALOGRAM Name: BENI MERCEDES Room #: 239-P [facility] IN M.R.#: [id number] Admission: 09/08/17 Attend Phys: Chuck Dang MD Discharge: 09/10/17 Date of : 73 Report #: [id number] THIS REPORT FOR: //name// CC: Chuck Dang [facility] unknown DATE OF SERVICE: 09/08/2017 This patient is being evaluated for seizure. EEG was done by placing the electrode by standard 10-20 system of electrode placement. Both referential and sequential montages were used for recording. Background activity in the left side is about 10 Hz and 40 microvolt. It is somewhat suppressed on the right side consistent with his prior stroke. Photic stimulation is unremarkable. The patient is sedated. No active epileptiform activity was noticed. IMPRESSION: In spite of the patient's history of a recent seizure, no active epileptiform activity was identified. Thank you very much for this referral. <ELECTRONICALLY SIGNED> By: Rowdy Markham MD 09/12/17 1424 1806 1820 Rowdy Markham MD /nt
--- NOTE | ~2017-09-08 | EKG ---
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
--- NOTE | ~2017-09-08 | HC ---
[facility] [place] [address] CONSULTATION Name: BENI MERCEDES Room #: 239-P [facility] IN M.R.#: [id number] Admission: 09/08/17 Attend Phys: Chuck Dang MD Discharge: 09/10/17 Date of : 73 Report #: [id number] THIS REPORT FOR: //name// CC: Chuck Dang [facility] unknown DATE OF SERVICE: 09/08/2017 HISTORY OF PRESENT ILLNESS: This is a 42-year-old male patient who is well known to me. This patient has been admitted here multiple times for breakthrough seizures. A lot of time it has been because of noncompliance but this time, he had seizures in spite of being on therapeutic dosages of Dilantin. Last time also, he had similar situation, but I have talked to him and talked to the patient's that he really needs to go to an epileptologist, but they did not follow through on that advice. They continued to be noncompliant in that regard, but looks like her compliance from medication is better, but he continued to have a seizure. REVIEW OF SYSTEMS: Indicate that he had multiple seizures today. In the Emergency Room, he was intubated there. They gave him some Keppra. His Dilantin level was therapeutic. He has not had any seizures since then. REVIEW OF SYSTEMS: Also positive for stroke and VNS stimulator placed in. He has a pretty intractable problems. A 14-point review of system has been carried out and that is mainly positive for stroke and seizure. FAMILY HISTORY: Negative for congenital epilepsy. SOCIAL HISTORY: The patient is and I tried to call his . I cannot call his because she is not answering the phone I have. PHYSICAL EXAMINATION: The patient's examination is limited. NEUROLOGICAL: He is very somnolent and unresponsive, but when he wakes up he opens his eyes and he does not follow commands yet. His reflexes are diminished and that is basically all the neurological examination, which is possible. I cannot tell about focal neurological deficit, but he has that from the stroke. He is intubated. He is on vent. CARDIAC: Examination is unremarkable. GENERAL: He is a well-built individual who does not have any dysmorphic features of eyes, ears and face. VITAL SIGNS: His blood pressure is 141/97, respirations 16 and pulse is 93. LABORATORY DATA: Indicate a white count of 7.7. His potassium was a trace low, but his sodium was normal. We will get a magnesium checked on him. IMPRESSION: Breakthrough seizure by history. I am trying to get hold of this [facility] [address] [place] [address] CONSULTATION Name: BENI MERCEDES Room #: 239-P [facility] IN .R.#: [id number] Admission: 09/08/17 Attend Phys: Chuck Dang MD Discharge: 09/10/17 Date of : 73 Report #: [id number] patient's and when I can do it, I will try to discuss with her again. I will look at his electroencephalogram because sometime there has been question about pseudoseizure recently. Prior to that if I remember correctly, his electroencephalogram used to be pretty abnormal. RECOMMENDATIONS: I can get hold of the patient's . At the best I can tell, he is on 500 mg of IV Dilantin. I will give him Dilantin every 4 hours and see what his Dilantin level is tomorrow. Since he can swallow, I am able to give him IV Keppra. I will again make it very clear to the that this patient need to follow with epileptologist. I have done it in the past and I think that is the way she should follow up and see what they have to offer. They have not done it so far, but I will again strongly recommend that. Thank you very much for this referral. <ELECTRONICALLY SIGNED> By: Rowdy Markham MD 09/12/17 1422 [id number] Rowdy Markham MD /nt
[2017-09-08 11:04] LABS: ABSOLUTE NEUTROPHILS 5.5 thou/uL (1.4-8.2); BASOPHILS 0.6 % (0.0-2.0); EOSINOPHILS 1.1 % (0.0-3.0); HEMATOCRIT 42.4 % (42.0-52.0); HEMOGLOBIN 15.2 gm/dL (14.0-18.0); LYMPHOCYTES 18.8 % (24.0-44.0); MCH 32.8 pg (26.0-34.0); MCHC 35.9 g/dL (28.0-37.0); MCV 91.4 fL (80.0-100.0); MONOCYTES 7.7 % (1.0-8.0); PLATELET COUNT 216 thou/uL (150-400); POLYS 71.8 % (36.0-66.0); RBC 4.64 mil/uL (4.50-6.00); WBC 7.7 thou/uL (4.0-11.0)
[2017-09-08 11:08] LABS: ANION GAP 9 mmol/L (7-16); BUN 7 mg/dL (7-18); CALCIUM 8.6 mg/dL (8.5-10.1); CHLORIDE 105 mmol/L (98-107); CO2 25 mmol/L (21-32); GLUCOSE 114 mg/dL (74-106); POTASSIUM 3.4 mmol/L (3.5-5.1); SODIUM 139 mmol/L (136-145)
[2017-09-08 11:18] LABS: TROPONIN-I <0.06 ng/mL (<0.06)
[2017-09-08 12:32] LABS: BE(vivo) -1.6 mmol/L (-2 to +3); HCO3 22.7 mmol/L (22.0-26.0); PCO2 37.2 mmHg (35.0-45.0); PO2 89.3 mmHg (80.0-100.0); pH 7.403 (7.360-7.450); sO2 96.9 % (92.0-98.0)
[2017-09-08 12:35] LABS: AMP/METHAMP Negative (Negative); BARBITURATES Negative (Negative); BENZODIAZEPINES POSITIVE (Negative); COCAINE Negative (Negative); METHADONE Negative (Negative); OPIATES Negative (Negative); PCP Negative (Negative)
[2017-09-08 15:01] LABS: URINE BILIRUBIN NEGATIVE (Negative); URINE BLOOD 1+ (Negative); URINE CLARITY CLEAR; URINE COLOR YELLOW; URINE GLUCOSE-RANDOM* NEGATIVE (Negative); URINE KETONES TRACE (Negative); URINE LEUKOCYTES NEGATIVE (Negative); URINE NITRITE NEGATIVE (Negative); URINE PROTEIN (DIPSTICK) 1+ (Negative); URINE SPECIFIC GRAVITY 1.025 (1.005-1.035); URINE UROBILINOGEN 0.2 E.U./dl (0.2-1.0)
[2017-09-08 15:11] LABS: BACTERIA 1-9 Few /HPF (None Seen); CASTS None Seen /LPF (None Seen); SQUAMOUS None Seen /LPF (0-3); URINE RBC None Seen /HPF (0-2)
[2017-09-08 15:12] LABS: AMORPHOUS URATES Moderate /LPF (None Seen); URINE WBC None Seen /HPF (0-5)
[2017-09-09] VITALS (30 sets, daily range): BP systolic 108–147; BP diastolic 76–104
[2017-09-09 05:50] LABS: HEMOGLOBIN 15.3 gm/dL (14.0-18.0); MCH 32.7 pg (26.0-34.0); MCHC 37.2 g/dL (28.0-37.0); RBC 4.66 mil/uL (4.50-6.00); RDW 14.1 % (10.5-14.5); WBC 9.2 thou/uL (4.0-11.0)
[2017-09-09 06:02] LABS: CALCIUM 8.6 mg/dL (8.5-10.1); CREATININE 0.9 mg/dL (0.7-1.3)
[2017-09-09 09:30] LABS: BE(vivo) 2.8 mmol/L (-2 to +3); HCO3 26.7 mmol/L (22.0-26.0); PCO2 38.7 mmHg (35.0-45.0); PO2 81.4 mmHg (80.0-100.0); pH 7.457 (7.360-7.450); sO2 96.5 % (92.0-98.0)
[2017-09-10] VITALS (18 sets, daily range): BP systolic 108–141; BP diastolic 66–124
[2017-09-10 03:39] LABS: CALCIUM 7.9 mg/dL (8.5-10.1); CREATININE 0.9 mg/dL (0.7-1.3); MAGNESIUM 1.6 mg/dL (1.8-2.4); POTASSIUM 3.4 mmol/L (3.5-5.1)
[2017-09-10 04:24] LABS: HEMATOCRIT 37.5 % (42.0-52.0); HEMOGLOBIN 13.4 gm/dL (14.0-18.0); MCH 32.1 pg (26.0-34.0); MCHC 35.8 g/dL (28.0-37.0); MCV 89.8 fL (80.0-100.0); RBC 4.18 mil/uL (4.50-6.00); RDW 13.8 % (10.5-14.5); WBC 9.1 thou/uL (4.0-11.0)
[2017-09-10 08:25] LABS: MAGNESIUM 1.6 mg/dL (1.8-2.4); POTASSIUM 3.5 mmol/L (3.5-5.1)
== END 2017-09-10 16:45 | disposition home or self-care (01) | DRG 100 ==
LOC: ER 10:29 → ICU 11:24 → EROBS 11:24 → ICU 13:23
PROVIDERS: Emergency Medicine; Hospitalist
PROC: 0BH17EZ Insertion of Endotracheal Airway into Trachea, Via Natural or Artificial Opening (ICD-10-PCS; principal; 2017-09-08)
PROC: B54MZZA Ultrasonography of Right Upper Extremity Veins, Guidance (ICD-10-PCS; principal; 2017-09-08)
PROC: 5A1935Z Respiratory Ventilation, Less than 24 Consecutive Hours (ICD-10-PCS; principal; 2017-09-08)
PROC: 05HY33Z Insertion of Infusion Device into Upper Vein, Percutaneous Approach (ICD-10-PCS; principal; 2017-09-08)
DX: G40.901 Epilepsy, unspecified, not intractable, with status epilepticus (principal); J96.01 Acute respiratory failure with hypoxia; I10 Essential (primary) hypertension; Z90.49 Acquired absence of other specified parts of digestive tract; Z79.899 Other long term (current) drug therapy; I69.354 Hemiplegia and hemiparesis following cerebral infarction affecting left non-dominant side; Z88.8 Allergy status to other drugs, medicaments and biological substances
CPT/HCPCS: 10203; 27000

== ENCOUNTER 2017-11-28 01:15 | Emergency (ER) | payer OTHER ==
[~2017-11-28] VITALS: Ht 160 cm; Wt 76.2 kg
[2017-11-28 02:51] LABS: URINE BILIRUBIN NEGATIVE (Negative); URINE BLOOD TRACE (Negative); URINE CLARITY CLEAR; URINE COLOR YELLOW; URINE GLUCOSE-RANDOM* NEGATIVE (Negative); URINE KETONES NEGATIVE (Negative); URINE LEUKOCYTES-REFLEX NEGATIVE (Negative); URINE NITRITE-REFLEX NEGATIVE (Negative); URINE PROTEIN (DIPSTICK) NEGATIVE (Negative); URINE UROBILINOGEN 0.2 E.U./dl (0.2-1.0)
[2017-11-28 03:00] LABS: AMP/METHAMP Negative (Negative); BARBITURATES Negative (Negative); BENZODIAZEPINES Negative (Negative); COCAINE Negative (Negative); METHADONE Negative (Negative); OPIATES Negative (Negative); PCP Negative (Negative)
[2017-11-28 03:35] LABS: CALCIUM 8.9 mg/dL (8.5-10.1); CREATININE 0.8 mg/dL (0.7-1.3); POTASSIUM 4.5 mmol/L (3.5-5.1)
== END 2017-11-28 05:16 | disposition home or self-care (01) ==
LOC: ER 01:15
PROVIDERS: Emergency Medicine
DX: R56.9 Unspecified convulsions (principal); Z86.73 Personal history of transient ischemic attack (TIA), and cerebral infarction without residual deficits; Z90.49 Acquired absence of other specified parts of digestive tract; Z88.8 Allergy status to other drugs, medicaments and biological substances

== ENCOUNTER 2018-03-09 17:51 | Inpatient (IN) | payer OTHER ==
[~2018-03-09] VITALS: Ht 172.7 cm; Wt 69.4 kg
[2018-03-09 17:54] VITALS: BP 168/109
[2018-03-09 18:55] LABS: URINE BILIRUBIN NEGATIVE (Negative); URINE BLOOD NEGATIVE (Negative); URINE CLARITY CLEAR; URINE COLOR YELLOW; URINE GLUCOSE-RANDOM* NEGATIVE (Negative); URINE KETONES NEGATIVE (Negative); URINE LEUKOCYTES-REFLEX NEGATIVE (Negative); URINE NITRITE-REFLEX NEGATIVE (Negative); URINE PROTEIN (DIPSTICK) NEGATIVE (Negative); URINE UROBILINOGEN 0.2 E.U./dl (0.2-1.0)
[2018-03-09 18:56] LABS: AMP/METHAMP Negative (Negative); BARBITURATES Negative (Negative); BENZODIAZEPINES Negative (Negative); COCAINE Negative (Negative); METHADONE Negative (Negative); OPIATES Negative (Negative); PCP Negative (Negative)
[2018-03-09 19:05] LABS: BACTERIA-REFLEX None Seen /HPF (None Seen); CASTS None Seen /LPF (None Seen); CRYSTALS None Seen /LPF (None Seen); SQUAMOUS >10 Many /LPF (0-3); URINE RBC 0-2 Rare /HPF (0-2); URINE WBC-REFLEX 0-5 Rare /HPF (0-5)
[2018-03-09 20:23] LABS: ABSOLUTE NEUTROPHILS 14.6 thou/uL (1.4-8.2); BASOPHILS 0.2 % (0.0-2.0); EOSINOPHILS 0.1 % (0.0-3.0); HEMATOCRIT 42.1 % (42.0-52.0); HEMOGLOBIN 14.7 gm/dL (14.0-18.0); LYMPHOCYTES 4.4 % (24.0-44.0); MCH 32.9 pg (26.0-34.0); MCHC 34.8 g/dL (28.0-37.0); MCV 94.5 fL (80.0-100.0); MONOCYTES 3.8 % (1.0-8.0); PLATELET COUNT 193 thou/uL (150-400); POLYS 91.5 % (36.0-66.0); RBC 4.46 mil/uL (4.50-6.00); RDW 14.5 % (10.5-14.5); WBC 15.9 thou/uL (4.0-11.0)
[2018-03-09 20:31] LABS: CALCIUM 8.3 mg/dL (8.5-10.1); CREATININE 0.9 mg/dL (0.7-1.3); POTASSIUM 4.5 mmol/L (3.5-5.1)
[2018-03-09 20:39] LABS: ALBUMIN 3.4 g/dL (3.4-5.0); MAGNESIUM 1.7 mg/dL (1.8-2.4); TOTAL BILIRUBIN 0.3 mg/dL (<0.1-1.0)
[2018-03-09 22:05] VITALS: BP 145/89
[2018-03-09 22:13] VITALS: BP 145/89
[2018-03-09 22:34] VITALS: BP 155/93
--- NOTE | 2018-03-09 22:47 | NUR ---
ADMIT NOTE: Pt arrived to ICU room 244 from ED at 2230. Pt very lethargic but arouses to verbal stimuli, will answer appropriately with short sentences. All extremities weak, able to follow simple commands. Monitor sinus tachycardia rate 106-115; O2 sat 100% on room air. Pupils JIN, 3 and brisk. Pt has left shoulder #22 saline lock and left leg IO, both patent.
[2018-03-09 23:04] VITALS: BP 137/87
[2018-03-09 23:34] VITALS: BP 130/88
[2018-03-10] VITALS (32 sets, daily range): BP systolic 105–146; BP diastolic 62–96
--- NOTE | 2018-03-10 06:18 | NUR ---
END OF SHIFT SUMMARY; Pt has had no further seizure activity since admission. Remains very lethargic but does arouse more readily to verbal stimuli. Monitor remains sinus rhythm, sinus tachycardia, rates 90-118. Pt desaturated to 88% around 0200 and was placed on 2 L nasal canula. Sat has remained 98-100% on 2 L. Urine output adequate.
[2018-03-10] MEDS ORDERED: DILANTIN100 MG PO (08:36)
--- NOTE | 2018-03-10 16:42 | NUR ---
TRANSFERED TO [facility] VIA . ALL BELONGINGS WITH PT. VSS. FAMILY ARRIVED.
--- NOTE | 2018-03-10 18:28 | NUR ---
PT TRANSFERED FROM ICU TO FLOOR AT 1615 IN STABLE IN CONDITION.PTHAS BEEN SLEEPING SINCE ARRIVAL TO UNIT.ALL SIDE RAILS PADDED FOR SEIZURE PRECAUTION. FAMILY STAYED BRIEFLY FOR SOME MINUTES AND LEFT FOR HOME.NO SEIZURE ACTIVITY NOTED.WILL CONTINUE TO MONITOR.
--- NOTE | 2018-03-10 22:24 | NUR ---
PT HAS BEEN SLEEPING SINCE START OF SHIFT. JUST WOKE UP AND ASKED FOR SOMETHING TO EAT. GIVEN A SANDWICH. PT IS ALERT TO PLACE,AND SITUATION. HE IS CONFUSED. HE IS ABLE TO FEED HIMSELF. MURRIETA WITH GOOD U/O. HS MEDS SWALLOWED WIH NO DIFFICULT. SOME WEAKNESS TO L SIDE. SCDS IN PLACE. SEIZURE PRECAUTION IN PLACE. NO FURTHER CONCERNS.
[2018-03-11 04:22] VITALS: BP 111/68
--- NOTE | 2018-03-11 04:56 | NUR ---
PT AOX2-3, FORGETFUL. DENIES PAIN. NO SEIZURES NOTED DURING THE NIGHT. SEIZURE PRECAUTIONS IN PLACE. DROWSY, BUT ABLE TO CLEARLY COMMUNICATE WANTS. USES CALL LIGHT APPROPIATELY. ON RA, NO SIGNS OF SOA WHILE AT REST. TOLERATE PO, WITH ASPIRATION PRECAUTIONS IN PLACE. MURRIETA DRAINING. NO COMPLAINS, WILL CONTINUE TO MONITOR.
[2018-03-11 07:25] VITALS: BP 103/62
[2018-03-11 09:18] LABS: FOLIC ACID 3.5 ng/mL (8.6-58.9)
--- NOTE | 2018-03-11 10:31 | NUR ---
ASSUMED CARE OF PT AT 0700. ASSESSMENT COMPLETED AND CHARTED. PT ANSWERS QUESTIONS APPROPRIATELY. DENIES PAIN, N/V/D. BM TODAY. MAINTAINING SEIZURE PRECAUTIONS. WILL CONTINUE TO MONITOR.
[2018-03-11 12:17] VITALS: BP 103/62
--- NOTE | 2018-03-11 14:05 | NUR ---
assessment-pt lives at HOME WITH HIS SPOUSE AND KIDS AND WILL RETURN BACK THERE TODAY. PT SAYS HE HAS A RIDE HOME. ENCOURAGED PT TO [facility]LL[facility] AT [facility]STRU[facility] BEFORE AND ALSO GAVE HIM SAFETY NET CLINIC INFO. PT WALKS ON HIS OWN AND IS ABLE TO DO HIS OWN ADLS. NO DC NEEDS ANTICIPATED.
--- NOTE | 2018-03-11 16:42 | NUR ---
NEW D/C ORDERS. MURRIETA CATHETER REMOVED, 350 ML CLEAR YELLOW URINE NOTED. PT VOIDED X2 AFTER CATHETER REMOVAL. IV REMOVED, NO BLEEDING. D/C INFORMATION DISCUSSED WITH PT AND S.O. AT BEDSIDE. PT LEFT VIA WHEELCHAIR IN STABLE CONDITION AT 16:43. PT HAD ALL BELONGINGS.
== END 2018-03-11 16:35 | disposition home or self-care (01) | DRG 101 ==
LOC: ER 17:51 → EROBS 21:06 → ICU 22:14 → 4E 03-10 16:21 → ENTRNSPT 03-11 16:16 → 4E 03-11 16:35
PROVIDERS: Emergency Medicine; Psychiatry & Neurology Neurology; ADMIT Hospitalist
DX: G40.901 Epilepsy, unspecified, not intractable, with status epilepticus (principal); I69.354 Hemiplegia and hemiparesis following cerebral infarction affecting left non-dominant side; E83.42 Hypomagnesemia; I10 Essential (primary) hypertension; Z53.29 Procedure and treatment not carried out because of patient's decision for other reasons; Z88.8 Allergy status to other drugs, medicaments and biological substances; Z91.19 Patient's noncompliance with other medical treatment and regimen; Z79.899 Other long term (current) drug therapy
CPT/HCPCS: 10078; 10783

== ENCOUNTER 2018-10-02 15:44 | Emergency (ER) | payer OTHER ==
[~2018-10-02] VITALS: Ht 160 cm; Wt 69.8 kg
[2018-10-02 17:14] LABS: ABSOLUTE NEUTROPHILS 4.7 thou/uL (1.4-8.2); BASOPHILS 0.8 % (0.0-2.0); EOSINOPHILS 2.4 % (0.0-3.0); HEMATOCRIT 40.5 % (42.0-52.0); HEMOGLOBIN 13.9 gm/dL (14.0-18.0); LYMPHOCYTES 27.9 % (24.0-44.0); MCHC 34.2 g/dL (28.0-37.0); MCV 90.5 fL (80.0-100.0); PLATELET COUNT 305 thou/uL (150-400); POLYS 59.9 % (36.0-66.0); RBC 4.48 mil/uL (4.50-6.00); RDW 16.2 % (10.5-14.5); WBC 7.8 thou/uL (4.0-11.0)
[2018-10-02] MEDS ORDERED: KEPPRA 500 MG500 M1 PO (17:22)
[2018-10-02 17:23] LABS: ANION GAP 6 mmol/L (7-16); BUN 11 mg/dL (7-18); CALCIUM 8.8 mg/dL (8.5-10.1); CHLORIDE 102 mmol/L (98-107); CO2 30 mmol/L (21-32); CREATININE 1.2 mg/dL (0.7-1.3); GLUCOSE 85 mg/dL (74-106); POTASSIUM 4.5 mmol/L (3.5-5.1); SODIUM 138 mmol/L (136-145)
[2018-10-02] MEDS ORDERED: DILANTIN100 MG PO ×2 (17:24→17:25)
[2018-10-02] MEDS ORDERED: SERTRALINE HCL50 MG PO (17:26)
[2018-10-02] MEDS ORDERED: TOPROL XL25 MG PO (17:26)
[2018-10-02] MEDS ORDERED: ABILIFY 5 MG TAB5 MG PO (17:27)
[2018-10-02 17:29] LABS: ALBUMIN 3.6 g/dL (3.4-5.0); DIRECT BILIRUBIN < 0.1 mg/dL (<0.1-0.3); SGOT 18 U/L (15-37); SGPT 35 U/L (30-65); TOTAL BILIRUBIN 0.1 mg/dL (<0.1-1.0)
[2018-10-02 17:51] LABS: AMP/METHAMP Negative (Negative); BARBITURATES Negative (Negative); BENZODIAZEPINES Negative (Negative); COCAINE Negative (Negative); METHADONE Negative (Negative); OPIATES Negative (Negative); PCP Negative (Negative)
[2018-10-02 21:47] VITALS: BP 135/80
== END 2018-10-02 21:57 | disposition home or self-care (01) ==
LOC: ER 15:44
PROVIDERS: Emergency Medicine
DX: T42.0X1A Poisoning by hydantoin derivatives, accidental (unintentional), initial encounter (principal); F91.8 Other conduct disorders; F28 Other psychotic disorder not due to a substance or known physiological condition; G40.909 Epilepsy, unspecified, not intractable, without status epilepticus; Z90.49 Acquired absence of other specified parts of digestive tract; Z79.899 Other long term (current) drug therapy; Z88.8 Allergy status to other drugs, medicaments and biological substances; Z86.73 Personal history of transient ischemic attack (TIA), and cerebral infarction without residual deficits; Y92.9 Unspecified place or not applicable